=== PATIENT | male | born 2005 | race Caucasian/White ===

== ENCOUNTER 2023-03-16 13:06 | Emergency (ER) | payer SELFPAY ==
[~2023-03-16] VITALS: Ht 167.6 cm; Wt 55.0 kg
[2023-03-16 13:17] VITALS: BP 110/67
[2023-03-16] MEDS ORDERED: KETOROLAC 60MG/2ML VIAL IM STA (15:29)
[2023-03-16] MEDS ORDERED: METOCLOPRAMIDE HCL 10MG/2ML VIAL IM ONE (15:30)
[2023-03-16] MEDS ORDERED: NAPR-681 PO (16:52)
== END 2023-03-16 17:12 | disposition home or self-care (01) ==
LOC: ER 13:18
DX: R51.9 Headache, unspecified (principal)
CPT/HCPCS: 96372; 99284; J1885; J2765